=== PATIENT | female | born 1980 | race Caucasian/White ===

== ENCOUNTER 2017-04-22 22:51 | Emergency (ER) | payer SELFPAY ==
[~2017-04-22] VITALS: Ht 170.2 cm; Wt 71.0 kg
[~2017-04-22 22:51] MED LIST: NOHOMEMEDS
[2017-04-22 22:53] VITALS: BP 116/69
== END 2017-04-23 00:05 | disposition left against medical advice (07) ==
LOC: EME 22:51
DX: R21 Rash and other nonspecific skin eruption (principal); Z53.21 Procedure and treatment not carried out due to patient leaving prior to being seen by health care provider

== ENCOUNTER 2017-07-27 14:30 | Inpatient (IN) | payer OTHER ==
[2017-07-27] VITALS (7 sets, daily range): BP systolic 118–134; BP diastolic 60–76
[2017-07-27 15:16] LABS: EOSINOPHIL (%) 0.1 % (0-5); HEMATOCRIT 35.8 % (36.0-46.0); IMMATURE GRANULOCYTE (%) 0.3 % (0.0-0.7); IMMATURE GRANULOCYTE COUNT 0.1 K/uL; INSTRUMENT ABS NEUTROPHIL CT 12.8 K/uL; LYMPHOCYTE COUNT 1.2 K/uL (1.0-2.8); MCH 32.2 PG (29.0-34.0); MCHC 34.6 G/DL (30.0-36.0); MEAN PLAT.VOLUME 9.5 uM^3 (9.5-12.4); MONOCYTE (%) 3.7 % (3-12); MONOCYTE COUNT 0.6 K/uL (0-0.8); NEUTROPHIL (%) 87.5 % (45-76); NEUTROPHIL COUNT 12.8 K/uL (1.8-6.4); PLATELET COUNT 320 K/uL (156-360); RBC DIS.WIDTH-CV 12.7 % (11.8-14.6); RBC DIS.WIDTH-SD 43.5 % (39-53); RED BLOOD COUNT 3.85 M/uL (3.80-5.20); WHITE BLOOD COUNT 14.7 K/uL (4.1-10.2)
[2017-07-27 15:28] LABS: ADD MIUA? YES; BILIRUBIN NEGATIVE; BLOOD MODERATE; COLOR AMBER ((YELLOW)); GLUCOSE (STRIP) NEGATIVE; KETONES 80; LEUKOCYTES NEGATIVE; NITRITE NEGATIVE; PROTEIN (STRIP) 30; SPECIFIC GRAVITY 1.023 (1.000-1.030)
[2017-07-27 15:33] LABS: BACTERIA NONE SEEN /HPF; EPITHELIAL CELLS RARE /HPF; MUCUS 3+ /LPF; RED BLOOD CELLS TNTC /HPF (0-5); UCUL ADDED? YES; WHITE BLOOD CELLS 0-5 /HPF (0-5)
[2017-07-27] MEDS ORDERED: PROMETHAZINE HC25 M1 PO (16:03)
[2017-07-27] MEDS ORDERED: ZOLOFT25 MG PO (16:04)
[2017-07-27 16:09] LABS: ADD MEDTOX COMMENT Y; AMPHETAMINE NEGATIVE (500 ng/mL); BARBITURATES NEGATIVE (200 ng/mL); BENZODIAZEPINES NEGATIVE (150 ng/mL); COCAINE PRESUMPTIVE POSITIVE (150 ng/mL); INTERNAL CONTROLS VALID? YES; METHADONE NEGATIVE (200 ng/mL); METHAMPHETAMINE NEGATIVE (500 ng/mL); OPIATES (MORPHINE) NEGATIVE (100 ng/mL); OXYCODONE NEGATIVE (100 ng/mL); PHENCYCLIDINE NEGATIVE (25 ng/mL); PROPOXYPHENE NEGATIVE (300 ng/mL); THC CANNABINOIDS NEGATIVE (50 ng/mL); TRICYCLIC ANTIDEPRESSANTS PRESUMPTIVE POSITIVE (300 ng/mL)
[2017-07-27 16:50] LABS: CANDIDA DNA PROBE POSITIVE; GARDNERELLA DNA PROBE NEGATIVE; INTERNAL CONTROL VALID? YES
[2017-07-27 22:25] LABS: ANTI-HIV (AIDS STAT TEST) NONREACTIVE; INTERNAL CONTROL VALID? YES
[2017-07-28 06:35] LABS: EOSINOPHIL (%) 0 % (0-5); HEMATOCRIT 35.7 % (36.0-46.0); IMMATURE GRANULOCYTE (%) 0.6 % (0.0-0.7); IMMATURE GRANULOCYTE COUNT 0.1 K/uL; LYMPHOCYTE COUNT 0.9 K/uL (1.0-2.8); MCHC 33.1 G/DL (30.0-36.0); MCV 93.7 FL (83-99); MEAN PLAT.VOLUME 9.5 uM^3 (9.5-12.4); MONOCYTE (%) 1.2 % (3-12); MONOCYTE COUNT 0.3 K/uL (0-0.8); NEUTROPHIL (%) 94.3 % (45-76); PLATELET COUNT 316 K/uL (156-360); RBC DIS.WIDTH-CV 12.5 % (11.8-14.6); RBC DIS.WIDTH-SD 43.1 % (39-53); RED BLOOD COUNT 3.81 M/uL (3.80-5.20); WHITE BLOOD COUNT 23.3 K/uL (4.1-10.2)
[2017-07-29 10:14] LABS: TREPONEMA ANTIBODY NEGATIVE (NEGATIVE)
[2017-07-29 10:56] LABS: HBSG INDEX 0.16
[2017-07-29 10:57] LABS: HIV INDEX 0.12; HIV-1/2 AB/AG COMBO Nonreactive
[2017-07-30 13:00] LABS: CHLAMYDIA TRACHOMATIS NEGATIVE; NEISSERIA GONORRHOEAE NEGATIVE
== END 2017-07-28 18:32 | disposition home or self-care (01) | DRG 775 ==
LOC: LDRP-OP 14:30 → 2WEST 14:31
PROVIDERS: Advanced Practice Midwife
DX: O60.14X0 Preterm labor third trimester with preterm delivery third trimester, not applicable or unspecified (principal); O69.89X0 Labor and delivery complicated by other cord complications, not applicable or unspecified; O99.334 Smoking (tobacco) complicating childbirth; F17.200 Nicotine dependence, unspecified, uncomplicated; Z3A.36 36 weeks gestation of pregnancy; Z37.0 Single live birth
CPT/HCPCS: 81003; 84999; 85025; 86703; 86762; 86780; 86850; 86900; 86901; 87086; 87340; 87480; 87491; 87510; 87591; 87660; 88307; J0702; J2540; J7120

== ENCOUNTER 2018-01-27 15:19 | Emergency (ER) | payer OTHER ==
[~2018-01-27] VITALS: Ht 170.2 cm; Wt 63.0 kg
[~2018-01-27 15:19] MED LIST changes: +PROMETHAZINE HC25 M1 PO; +ZOLOFT25 MG PO
[2018-01-27 17:11] LABS: APPEARANCE SL.HAZY ((CLEAR)); BILIRUBIN NEGATIVE; BLOOD NEGATIVE; COLOR YELLOW ((YELLOW)); GLUCOSE (STRIP) NEGATIVE; KETONES NEGATIVE; LEUKOCYTES NEGATIVE; NITRITE NEGATIVE; PROTEIN (STRIP) NEGATIVE; SPECIFIC GRAVITY 1.029 (1.000-1.030); UROBILINOGEN 0.2 MG/DL (0.2-1.0)
[2018-01-27 17:14] LABS: BACTERIA NONE SEEN /HPF; EPITHELIAL CELLS 1+ /HPF; MUCUS TRACE /LPF; RED BLOOD CELLS 0-5 /HPF (0-5); WHITE BLOOD CELLS 0-5 /HPF (0-5)
[2018-01-27 17:31] LABS: AMPHETAMINE NEGATIVE (500 ng/mL); BARBITURATES NEGATIVE (200 ng/mL); BENZODIAZEPINES NEGATIVE (150 ng/mL); BUPRENORPHINE NEGATIVE (10 ng/mL); COCAINE NEGATIVE (150 ng/mL); METHADONE NEGATIVE (200 ng/mL); METHAMPHETAMINE NEGATIVE (500 ng/mL); OXYCODONE NEGATIVE (100 ng/mL); PHENCYCLIDINE NEGATIVE (25 ng/mL); PROPOXYPHENE NEGATIVE (300 ng/mL); THC CANNABINOIDS PRESUMPTIVE POSITIVE (50 ng/mL); TRICYCLIC ANTIDEPRESSANTS NEGATIVE (300 ng/mL)
[2018-01-27 17:32] LABS: OPIATES (MORPHINE) PRESUMPTIVE POSITIVE (100 ng/mL)
[2018-01-27 17:45] LABS: HEMATOCRIT 37.9 % (36.0-46.0); HEMOGLOBIN 12.7 G/DL (11.9-15.5); MCHC 33.5 G/DL (30.0-36.0); MCV 98.4 FL (83-99); PLATELET COUNT 243 K/uL (156-360); RBC DIS.WIDTH-CV 13.9 % (11.8-14.6); RBC DIS.WIDTH-SD 50.9 % (39-53); RED BLOOD COUNT 3.85 M/uL (3.80-5.20); WHITE BLOOD COUNT 8.6 K/uL (4.1-10.2)
[2018-01-27 17:53] LABS: CHLORIDE 108 mEq/L (99-109); POTASSIUM 4.1 mEq/L (3.7-5.4); SODIUM 143 mEq/L (136-147)
[2018-01-27 17:54] LABS: GLUCOSE 88 mg/dL (70-99)
[2018-01-27 17:58] LABS: CREATININE 0.7 mg/dL (0.6-1.3); GFR ESTIMATE (CALCULATED) > 59 mL/min/
[2018-01-27 17:59] LABS: UREA NITROGEN (BUN) 16 mg/dL (9-23)
[2018-01-27 18:07] LABS: QUANTITATIVE HCG < 4.0 MIU/ML
[2018-01-28 07:24] VITALS: BP 122/79
== END 2018-01-28 07:34 ==
LOC: EME 15:19
PROVIDERS: Nurse Practitioner Family
DX: F32.2 Major depressive disorder, single episode, severe without psychotic features (principal); R45.851 Suicidal ideations; F19.10 Other psychoactive substance abuse, uncomplicated; F12.90 Cannabis use, unspecified, uncomplicated; F17.200 Nicotine dependence, unspecified, uncomplicated
CPT/HCPCS: 80048; 81003; 84702; 84999; 85027; 85610; 85730; 90837; 99281; 99285